=== PATIENT | male | born 1945 | race Caucasian/White ===

== ENCOUNTER → 2020-10-15 15:49 | Outpatient (CLI) | payer MEDICARE, SELFPAY ==
[2020-10-15 16:58] LABS: Add Manual Diff / Slide Review NO; Basophils Absolute Auto 100 /uL (0-100); Basophils Percent Auto 0.9 % (0-2); Eosinophils Absolute Auto 200 /uL (0-450); Eosinophils Percent Auto 2.5 % (2-4); Hematocrit 46.3 % (41-53); Hemoglobin 15.5 g/dL (13.5-17.5); Lymphocytes Absolute Auto 2200 /uL (1100-4500); Lymphocytes Percent Auto 32.2 % (25-40); Mean Corpuscular HGB Conc 33.5 % (30-36); Mean Corpuscular Hemoglobin 29.3 PG (26-34); Mean Corpuscular Volume 87.2 fL (80-100); Monocytes Absolute Auto 700 /uL (0-900); Monocytes Percent Auto 9.5 % (3-14); Neutrophils Absolute Auto 3800 /uL (1500-7000); Neutrophils Percent Auto 54.9 % (50-75); Platelet Count 165 X10^3/uL (150-400); Red Blood Cell Count 5.31 X10^6/uL (4.5-5.9); Red Cell Distribution Width 13.4 % (11.6-14.8)
[2020-10-15 17:19] LABS: Blood Urea Nitrogen 17 mg/dL (9-20); Carbon Dioxide 31 mmol/L (22-32); Chloride 102 mmol/L (98-107); Estimated Glomerular Filt Rate > 60.0 mL/min (>60); Glucose 92 mg/dL (80-110); HEMOLYSIS < 15 (0-50); Potassium 4.4 mmol/L (3.4-5.1); Sodium 139 mmol/L (137-145)
[2020-10-15 17:23] LABS: High Sensitivity CRP - Cardiac 0.6 mg/L (1.0-3.0)
[2020-10-15 17:33] LABS: Free T3, Triiodothyronine Free 4.32 pg/mL (2.77-5.27); Free T4, Direct Thyroxine 0.77 ng/dL (0.78-2.19)
[2020-10-15 17:47] LABS: Thyroid Stimulating Hormone 0.925 uIU/mL (0.47-4.68)
[2020-10-16 08:43] LABS: Adrenocorticotropic Hormone 21.2 pg/mL (7.2-63.3); Dehydroepiandrosterone Sulfate 47.8 ug/dL (30.9-295.6)
[2020-10-22 18:22] LABS: Percent Free Testosterone 1.88 % (1.50-4.20); Testosterone Total 319.3 ng/dL (264.0-916.0)
== END ==
PROVIDERS: Referring Provider Family Medicine; Visit Provider Family Medicine
DX: E78.5 Hyperlipidemia, unspecified (principal); E03.9 Hypothyroidism, unspecified; I48.0 Paroxysmal atrial fibrillation; E34.9 Endocrine disorder, unspecified; Z12.5 Encounter for screening for malignant neoplasm of prostate; D35.2 Benign neoplasm of pituitary gland
CPT/HCPCS: 36415; 80048; 82024; 82627; 84153; 84402; 84403; 84439; 84443; 84481; 85025; 86140; G0103

== ENCOUNTER → 2020-10-16 09:30 | Outpatient (CLI) | payer MEDICARE, SELFPAY ==
[2020-10-16 11:14] LABS: Cholesterol 151 mg/dL (140-199); HDL Cholesterol 53 mg/dL (40-60); LDL Cholesterol Calculated 68 mg/dL (<100); Triglycerides 148 mg/dL (35-150)
== END ==
PROVIDERS: Referring Provider Family Medicine; Visit Provider Family Medicine
DX: E78.5 Hyperlipidemia, unspecified (principal)
CPT/HCPCS: 36415; 80061

== ENCOUNTER → 2021-03-01 12:26 | Outpatient (CLI) | payer MEDICARE, SELFPAY ==
--- NOTE | 2021-03-01 | DI.RAD.S_ITS ---
PROCEDURE: XR CERVICAL SPINE 2V OR 3V INDICATIONS: Low Back Pain/Neck Pain/Shoulder Pain TECHNIQUE: 3 view(s) of the cervical spine were acquired. COMPARISON: None. FINDINGS: Bones: No fractures or dislocations to the T1 level. The lateral masses of C1 appear intact on the odontoid view. No suspicious bony lesions. Severe cervical spondylitic change. Multilevel prominent facet hypertrophy. Severe disc height loss and uncovertebral joint osteophytes at C5-C6, C6-C7, and C7-T1. Soft tissues: No prevertebral soft tissue swelling. IMPRESSION: Severe cervical spondylosis. No evidence acute bony abnormality of the cervical spine. If clinical suspicion and/or symptoms persist, further assessment with repeat plain films, or advanced imaging (e.g., CT, MRI, or bone scan) may be helpful for further assessment. Dictated by: Giancarlo Polo M.D. on 03/01/2021 at 17:14 Approved by: Giancarlo Polo M.D. on 03/01/2021 at 17:15
--- NOTE | 2021-03-01 | DI.RAD.S_ITS ---
PROCEDURE: XR LUMBAR SPINE 2-3V INDICATIONS: Low Back Pain/Neck Pain/Shoulder Pain TECHNIQUE: 3 views of the lumbar spine were acquired. COMPARISON: None. FINDINGS: Bones: 5 [id number] vertebrae are present. There is mild leftward curvature of the mid/lower lumbar spine. Multilevel disc space narrowing and endplate osteophyte formation. Facet hypertrophy throughout the mid and lower lumbar spine. No vertebral body compression fractures. No suspicious bony lesions. Soft tissues: Overlying bowel gas pattern is normal. No suspicious soft tissue calcifications. IMPRESSION: Multilevel degenerative disc and facet disease. No acute fracture. No osseous lesion. If symptoms and/or clinical suspicion for pathology persist, further assessment with repeat, or advanced imaging (e.g., CT, MRI, or bone scan) may be helpful for further assessment. Dictated by: Mode Washington M.D. on 03/01/2021 at 15:13 Approved by: Mode Washington M.D. on 03/01/2021 at 15:14
--- NOTE | 2021-03-01 | DI.RAD.S_ITS ---
PROCEDURE: XR SHOULDER RT MIN 2V INDICATIONS: Low Back Pain/Neck Pain/Shoulder Pain TECHNIQUE: 3 views of the shoulder were acquired. COMPARISON: None. FINDINGS: Bones: No fractures or dislocations. Moderate degenerative change at the AC joint. No suspicious bony lesions. Visualized ribs appear intact. Soft tissues: No suspicious soft tissue calcifications. IMPRESSION: Moderate degenerative change at the AC joint. Dictated by: Alexandro Torres M.D. on 03/01/2021 at 15:23 Approved by: Alexandro Torres M.D. on 03/01/2021 at 15:26
== END ==
PROVIDERS: PCP Internal Medicine; Referring Provider Chiropractor; Visit Provider Chiropractor
DX: M54.50 Low back pain, unspecified (principal); M54.2 Cervicalgia; M25.511 Pain in right shoulder; M51.37 Other intervertebral disc degeneration, lumbosacral region; M48.07 Spinal stenosis, lumbosacral region; M47.812 Spondylosis without myelopathy or radiculopathy, cervical region
CPT/HCPCS: 72040; 72100; 73030

== ENCOUNTER → 2021-04-28 13:49 | Outpatient (CLI) | payer MEDICARE, SELFPAY ==
[2021-04-28 16:27] LABS: Vitamin D 25 Hydroxy (D3) 75.2 ng/mL (30.0-100.0)
[2021-04-28 16:34] LABS: Estradiol, Total 11.4 pg/mL
[2021-04-29 10:19] LABS: PSA Free % 23.6 % (.); PSA, Total 5.6 ng/mL (0.0-4.0)
[2021-05-03 14:48] LABS: Percent Free Testosterone 1.74 % (1.50-4.20); Testosterone Free 7.61 ng/dL (5.00-21.00); Testosterone Total 437.2 ng/dL (264.0-916.0)
== END ==
PROVIDERS: PCP Internal Medicine; Referring Provider Naturopath; Visit Provider Naturopath
DX: Z79.899 Other long term (current) drug therapy (principal)
CPT/HCPCS: 36415; 82306; 82670; 84153; 84154; 84402; 84403

== ENCOUNTER → 2022-02-15 14:55 | Outpatient (CLI) | payer MEDICARE, SELFPAY ==
[2022-02-15 15:29] LABS: Estimated Glomerular Filt Rate > 60 mL/min (>60)
== END ==
PROVIDERS: PCP Internal Medicine; Referring Provider Radiology Diagnostic Radiology; Visit Provider Radiology Diagnostic Radiology
DX: M48.9 Spondylopathy, unspecified (principal)
CPT/HCPCS: 36415; 82565

== ENCOUNTER → 2022-02-16 11:58 | Outpatient (CLI) | payer MEDICARE, SELFPAY ==
--- NOTE | 2022-02-16 | DI.CT.S_ITS ---
PROCEDURE: CT THORACIC SPINE W CON INDICATIONS: spondylopathy TECHNIQUE: After the administration of intravenous Isovue contrast, 3 mm thick sections acquired through the levels of interest. Sagittal and coronal reformats were then constructed. For radiation dose reduction, the following was used: automated exposure control. COMPARISON: None. FINDINGS: Image quality: Excellent. Bones: Vertebral body height and alignment is maintained. Normal bone mineralization. Schmorl's nodes noted involving T1 and T3 superior endplates. Disc space narrowing anterior osteophytes noted at T7-8 and T8-9, T9-10. No lytic or blastic lesion. Soft tissues: No paraspinal mass. Incidental cholelithiasis without CT evidence of acute cholecystitis IMPRESSION: Degenerative disc disease without fracture or osseous lesion. Approved by: Lino Vasquez M.D. on 02/16/2022 at 16:47
== END ==
PROVIDERS: PCP Internal Medicine; Referring Provider Internal Medicine; Visit Provider Internal Medicine
DX: M51.34 Other intervertebral disc degeneration, thoracic region (principal); M48.9 Spondylopathy, unspecified
CPT/HCPCS: 72129

== ENCOUNTER 2022-03-27 13:32 | Day surgery (SDC) | payer MEDICARE, SELFPAY ==
[2022-03-27] MEDS: LACTATED RINGERS 1,000 ML 100 ML IV (13:45)
[2022-03-27 13:52] VITALS: BP 157/87; PULSE 76; RESP 16; TEMP 36.4; O2SAT 95; BMI 25.7
--- NOTE | 2022-03-27 14:36 | P.HP_ITS ---
History of Present Illness History of Present Illness Date Patient Seen: 03/27/22 Time Patient Seen: 14:36 Chief complaint: Colonoscopy Narrative: Personal history of colon polyps. Patient History Family & Social History Social History: household members spouse Tobacco & Substance use: Smoking Status Never smoker alcohol intake former Substance Use Type does not use,former substance user Meds Home Medications and Allergies Home Medications Medication Instructions Recorded Confirmed Type thyroid (pork) 120 mg tablet 120 mg PO DAILY 03/27/22 03/27/22 History ([place] Thyroid) Allergies Allergy/AdvReac Type Severity Reaction Status Date / Time Latex, Natural Rubber AdvReac Mild ITCHING Verified 03/27/22 13:48 Review of Systems Review of Systems ROS: Yes All systems reviewed with the patient and are negative except as otherwise documented Exam Vital Signs (past 8 hours): - 03/27/22 13:52 Temperature 97.5 F L Pulse Rate 76 Respiratory Rate 16 Blood Pressure 157/87 H Pulse Oximetry 95 Oxygen Delivery Method Room Air Oxygen Delivery Method Room Air Const General: cooperative HENMT Head: normal to inspection Eyes General: appearance normal, both eyes and all related structures Neck Neck: normal visual inspection Chest Chest: normal inspection of the chest Resp Effort & Inspection: normal respiratory effort Cardio Rate: regular rate GI Inspection: normal to inspection Skin General: no rashes or lesions noted Neuro General: patient alert and patient awake Extrem General: normal to inspection and no pedal edema Psych Appearance: grossly normal Assessment & Plan Assessment & Plan narrative: 76-year-old male with a personal history of colon polyps. Surveillance colonoscopy is pursued today. Time Spent With Patient Critical Care time: I spent a total of [] minutes of critical care time on this patient's care today; this time is exclusive of procedural time.
--- NOTE | 2022-03-27 14:38 | PM.PREOP ---
Pre-operative Note Interval Note History & Physical reviewed/Exam performed by Physician: Yes Changes to H&P: No ASA Class (for procedural sedation): II
--- NOTE | 2022-03-27 15:01 | PM.OP.COLON ---
Operative Date/Time/Diagnoses Date of procedure: 03/27/22 Time of procedure: 15:02 Pre-op diagnosis: Personal history of colon polyps Post-op diagnosis: same Procedure & Clinicians Study performed: Colonoscopy Same procedure as scheduled: Yes Indications: Personal history of colon polyps Surgeon: Saeid Blue Procedure Notes SCOAP/Timeout: Done Procedure in detail: After the risks and benefits were explained, written and verbal informed consent was obtained. The patient was brought into the procedure room and placed into the left lateral decubitus position. Please see anesthesia note for sedation details. Digital rectal examination was accomplished. The scope was introduced into the patient and advanced under direct visualization to the cecum as identified by the appendiceal orifice and ileocecal valve. The scope was slowly withdrawn to carefully examine the mucosa for any defects or lesions. Comprehensive imaging was accomplished throughout the rectum including the dentate line. The colon was decompressed, the scope was then removed from the patient who tolerated the procedure well. Bowel prep adequate Adult colonoscope Scope withdrawal time: 8 minutes Sedation minutes: 18 Specimen(s): none sent Complications: none Impression: The patient had rather extensive diverticulosis all through the sigmoid region. The sigmoid colon was mild to moderately tortuous. Grade 2 hemorrhoids were noted on direct views. Otherwise no significant pathology was appreciated throughout. Endoscopic diagnosis 1. Grade 2 hemorrhoids 2. Diverticulosis Post-procedure Plan for aftercare: 1. Follow up primary care as before. 2. Surveillance colonoscopy would typically be recommended for 10 years time (age 86) and therefore not deemed necessary. Disposition: PACU
[2022-03-27 15:02] VITALS: BP 110/66; PULSE 62; RESP 12; TEMP 37.1; O2SAT 96
[2022-03-27 15:07] VITALS: BP 115/71; PULSE 62; RESP 12; TEMP 36.7; O2SAT 97
[2022-03-27 15:12] VITALS: BP 135/81; PULSE 64; RESP 12; TEMP 36.8; O2SAT 96
[2022-03-27 15:17] VITALS: BP 143/90; PULSE 65; RESP 16; TEMP 36.4; O2SAT 99
[2022-03-27 15:34] VITALS: BP 141/83; PULSE 61; RESP 20; TEMP 36.4; O2SAT 97
== END 2022-03-27 15:40 | disposition home or self-care (01) ==
PROVIDERS: PCP Internal Medicine; Referring Provider Internal Medicine Gastroenterology; Visit Provider Internal Medicine Gastroenterology
PROC: 0DJD8ZZ Inspection of Lower Intestinal Tract, Via Natural or Artificial Opening Endoscopic (ICD-10-PCS; CPT 45378; principal; 2022-03-27 14:15)
DX: Z12.11 Encounter for screening for malignant neoplasm of colon (principal); Z86.010 Personal history of colon polyps; K57.30 Diverticulosis of large intestine without perforation or abscess without bleeding; K64.1 Second degree hemorrhoids
CPT/HCPCS: G0105; J2704; J3010

== ENCOUNTER → 2022-06-27 12:46 | Outpatient (CLI) | payer MEDICARE, SELFPAY ==
--- NOTE | 2022-06-27 12:48 | DI.RAD.S_ITS ---
PROCEDURE: XR CERVICAL SPINE 4V OR 5V INDICATIONS: Chronic neck pain TECHNIQUE: 5 views of the cervical spine acquired. COMPARISON: [facility], , XR CERVICAL SPINE 2V OR 3V, 03/01/2021, 12:34. FINDINGS: Bones: No fractures or dislocations to the T1 level. Oblique images demonstrate bilateral C3-C4, C4-C5, C5-C6 and C6-C7 bony foraminal stenoses. Severe C 5-C6, C6-C7 and C7-T1 degenerative disc disease. Moderate C3-C4 degenerative disc disease. Mild C4-C5 degenerative disc disease. Mild facet hypertrophy throughout the cervical spine. Soft tissues: No prevertebral soft tissue swelling. IMPRESSION: 1. Multilevel degenerative disc disease. 2. Multilevel facet arthropathy. 3. No fracture. No acute osseous lesion. If symptoms and/or clinical suspicion for pathology persists, evaluation with MRI should be considered for further assessment. Dictated by: Fidelina Garza MD, PhD on 06/27/2022 at 14:34 Approved by: Fidelina Garza MD, PhD on 06/27/2022 at 14:36
== END ==
PROVIDERS: Referring Provider Anesthesiology; Visit Provider Anesthesiology
DX: M47.812 Spondylosis without myelopathy or radiculopathy, cervical region (principal); M50.31 Other cervical disc degeneration, high cervical region
CPT/HCPCS: 72050; 99213

== ENCOUNTER → 2022-09-14 11:19 | Outpatient (CLI) | payer MEDICARE, SELFPAY ==
[2022-09-18 19:34] LABS: ANA Screen, IFA Negative (.)
== END ==
PROVIDERS: Referring Provider Dermatology; Visit Provider Dermatology
DX: L30.0 Nummular dermatitis (principal)
CPT/HCPCS: 36415; 86038

== ENCOUNTER → 2022-10-23 14:21 | Outpatient (CLI) | payer MEDICARE, SELFPAY ==
[2022-10-23 15:20] LABS: Add Manual Diff / Slide Review NO; Basophils Absolute Auto 0 /uL (0-100); Basophils Percent Auto 0.5 % (0-2); Eosinophils Absolute Auto 100 /uL (0-450); Eosinophils Percent Auto 1.7 % (2-4); Hematocrit 44.8 % (41-53); Hemoglobin 15.3 g/dL (13.5-17.5); Lymphocytes Absolute Auto 1800 /uL (1100-4500); Lymphocytes Percent Auto 24.3 % (25-40); Mean Corpuscular HGB Conc 34.1 % (30-36); Mean Corpuscular Hemoglobin 29.1 PG (26-34); Mean Corpuscular Volume 85.5 fL (80-100); Monocytes Absolute Auto 700 /uL (0-900); Neutrophils Absolute Auto 4700 /uL (1500-7000); Neutrophils Percent Auto 64.5 % (50-75); Platelet Count 160 X10^3/uL (150-400); Red Blood Cell Count 5.24 X10^6/uL (4.5-5.9); Red Cell Distribution Width 13.8 % (11.6-14.8); White Blood Cell Count 7.3 X10^3/uL (4.5-11.0)
[2022-10-23 15:35] LABS: Alanine Aminotransferase 28 IU/L (<50); Albumin 4.4 g/dL (3.5-5.0); Albumin Globulin Ratio 1.7 (1.0-2.8); Alkaline Phosphatase 91 U/L (38-126); Aspartate Aminotransferase 32 IU/L (17-59); BUN Creatinine Ratio 15.6 (6-22); Bilirubin Total 0.6 mg/dL (0.2-1.3); Blood Urea Nitrogen 14 mg/dL (9-20); C-Reactive Protein Quant < 0.5 mg/dL (<1.0); Calcium 9.1 mg/dL (8.4-10.2); Carbon Dioxide 29 mmol/L (22-32); Chloride 103 mmol/L (98-107); Estimated Glomerular Filt Rate > 60 mL/min (>60); Globulin 2.6 g/dL (1.7-4.1); Glucose 96 mg/dL (80-110); HEMOLYSIS < 15 (0-50); Potassium 4.6 mmol/L (3.4-5.1); Sodium 139 mmol/L (137-145)
[2022-10-23 15:48] LABS: Free T3, Triiodothyronine Free 6.15 pg/mL (2.77-5.27); Free T4, Direct Thyroxine 0.95 ng/dL (0.78-2.19)
[2022-10-23 16:01] LABS: Thyroid Stimulating Hormone 1.14 uIU/mL (0.47-4.68)
[2022-10-23 16:02] LABS: Prostate Specific Antigen Scrn 6.06 ng/mL (0.1-4.0)
[2022-10-23 16:10] LABS: Estradiol, Total 28.8 pg/mL
[2022-11-01 01:26] LABS: Percent Free Testosterone 1.99 % (1.50-4.20); Testosterone Free 7.08 ng/dL (5.00-21.00); Testosterone Total 355.7 ng/dL (264.0-916.0)
== END ==
PROVIDERS: PCP Family Medicine; Referring Provider Family Medicine; Visit Provider Family Medicine
DX: Z12.5 Encounter for screening for malignant neoplasm of prostate; E03.9 Hypothyroidism, unspecified
CPT/HCPCS: 36415; 80053; 82670; 84402; 84403; 84439; 84443; 84481; 85025; 86140; G0103

== ENCOUNTER → 2022-11-16 15:00 | Outpatient (CLI) | payer MEDICARE, SELFPAY ==
--- NOTE | 2022-11-16 15:02 | DI.US.S_ITS ---
PROCEDURE: US ABD AORTA ANEURYSM SCREEN INDICATIONS: screening TECHNIQUE: Real time scanning was performed of the aorta and iliac arteries, with image documentation. COMPARISON: None. FINDINGS: Aorta: Proximal aortic diameter measures 2.9 cm. Mid-aorta measures 1.9 cm. Distal aortic diameter is 1.8 cm. Iliac arteries: Right common iliac artery measures 1.3 cm. Left common iliac artery measures 1.3 cm. IMPRESSION: Ectasia of the proximal aorta and 5 year follow-up ultrasound recommended. Dictated by: Abram GILLIAM Interpreted: Neftaly Jalloh MD on 11/16/2022 at 15:56 Transcribed by: THALIA on 11/16/2022 at 15:57 Approved by: Neftaly Jalloh M.D. on 12/18/2022 at 7:53
== END ==
PROVIDERS: PCP Family Medicine; Referring Provider Family Medicine; Visit Provider Family Medicine
DX: Z13.6 Encounter for screening for cardiovascular disorders (principal); I77.819 Aortic ectasia, unspecified site
CPT/HCPCS: 76706

== ENCOUNTER → 2023-03-14 13:50 | Outpatient (CLI) | payer MEDICARE, SELFPAY ==
[2023-03-14 15:06] LABS: Free T3, Triiodothyronine Free 3.87 pg/mL (2.77-5.27); Free T4, Direct Thyroxine 0.77 ng/dL (0.78-2.19)
[2023-03-14 15:20] LABS: Thyroid Stimulating Hormone 0.489 uIU/mL (0.47-4.68)
== END ==
LOC: LAB 13:51
PROVIDERS: PCP Family Medicine; Referring Provider Family Medicine; Visit Provider Family Medicine
DX: E03.9 Hypothyroidism, unspecified (principal)
CPT/HCPCS: 84439; 84443; 84481

== ENCOUNTER → 2023-07-04 14:07 | Outpatient (CLI) | payer MEDICARE, SELFPAY ==
--- NOTE | 2023-07-04 14:09 | DI.RAD.S_ITS ---
PROCEDURE: XR ANKLE LT MIN 3V INDICATIONS: Left ankle injury TECHNIQUE: 3 views of the ankle were acquired. COMPARISON: None. FINDINGS: Bones: No fractures or dislocations. Osteoarthritic changes are noted in midfoot and hindfoot joints most notably in tibiotalar joint. Likely old injury involving tip of lateral malleolus with well corticated fragments. Ankle mortise is normally aligned. No suspicious bony lesions. Soft tissues: No tibiotalar joint effusion. Achilles tendon appears normal. IMPRESSION: No acute ankle fracture or dislocation. Old injury involving tip of lateral malleolus. [id number] midfoot and hindfoot joint osteoarthritis. Dictated by: Solo Hughes M.D. on 07/04/2023 at 14:48 Approved by: Solo Hughes M.D. on 07/04/2023 at 14:49
--- NOTE | 2023-07-04 14:09 | DI.RAD.S_ITS ---
PROCEDURE: XR ANKLE RT MIN 3V INDICATIONS: Right ankle injury TECHNIQUE: 3 views of the ankle were acquired. COMPARISON: [facility], CR, XR ANKLE LT MIN 3V, 07/04/2023, 13:20. FINDINGS: Bones: Acute to subacute appearing transverse fracture through tip of lateral malleolus is seen. No significant displacement. No other fracture or dislocation. Ankle mortise is normally aligned. No suspicious bony lesions. Soft tissues: Mild lateral ankle soft tissue swelling is seen. No tibiotalar joint effusion. Achilles tendon appears normal. IMPRESSION: Suggestion of acute to subacute nondisplaced transverse fracture through tip of lateral malleolus. Mild lateral ankle soft tissue swelling. Dictated by: Solo Hughes M.D. on 07/04/2023 at 14:53 Approved by: Solo Hughes M.D. on 07/04/2023 at 14:55
== END ==
LOC: RAD 14:09
PROVIDERS: PCP Nurse Practitioner Family; Referring Provider Physician Assistant Surgical; Visit Provider Physician Assistant Surgical
DX: S99.912A Unspecified injury of left ankle, initial encounter (principal); S99.911A Unspecified injury of right ankle, initial encounter; M19.072 Primary osteoarthritis, left ankle and foot; M79.89 Other specified soft tissue disorders; X58.XXXA Exposure to other specified factors, initial encounter
CPT/HCPCS: 73610

== ENCOUNTER → 2023-09-06 13:37 | Outpatient (CLI) | payer MEDICARE, SELFPAY ==
--- NOTE | 2023-09-06 13:41 | DI.RAD.S_ITS ---
PROCEDURE: XR ANKLE RT MIN 3V INDICATIONS: avulsion fracture of distal end of fibula TECHNIQUE: 3 views of the ankle were acquired. COMPARISON: July 04, 2023. FINDINGS: Bones: Bone alignment is normal. Posttraumatic change is again noted along the tip of the distal fibula. Fracture line remains, visualized with margins that are showing ossification, a normal consequence of tip fractures of the fibula. No complications are demonstrated. Ankle mortise is maintained. Soft tissues: No tibiotalar joint effusion. Achilles tendon appears normal. IMPRESSION: Healing fracture of the tip of the fibula. Dictated by: Rd Garcia M.D. on 09/06/2023 at 14:09 Approved by: Rd Garcia M.D. on 09/06/2023 at 14:17
== END ==
PROVIDERS: PCP Nurse Practitioner Family; Referring Provider Podiatrist; Visit Provider Podiatrist
DX: S82.831D Other fracture of upper and lower end of right fibula, subsequent encounter for closed fracture with routine healing (principal); X58.XXXD Exposure to other specified factors, subsequent encounter
CPT/HCPCS: 73610

== ENCOUNTER 2024-08-14 10:03 | Emergency (ER) | payer MEDICARE, SELFPAY ==
[2024-08-14 11:17] VITALS: BP 132/67; PULSE 52; RESP 16; TEMP 36.4; O2SAT 99; BMI 26.5
--- NOTE | 2024-08-14 11:21 | DI.RAD.S_ITS ---
PROCEDURE: XR KNEE RT 3V INDICATIONS: swelling TECHNIQUE: 3 views of the knee were acquired. COMPARISON: [facility], CR, XR ANKLE RT MIN 3V, 09/06/2023, 13:46. FINDINGS: Bones: No fractures or dislocations. No suspicious bony lesions. Tricompartmental arthritic change with chondrocalcinosis. Soft tissues: Mild joint effusion. No suspicious soft tissue calcifications. IMPRESSION: No visualized acute fracture or dislocation. However, if clinical concern and/or pain persist, short interval imaging followup in 7-10 days is recommended, as occult injury cannot be definitively excluded. Dictated by: Marisa Ram M.D. on 08/14/2024 at 12:02 Approved by: Marisa Ram M.D. on 08/14/2024 at 12:03
--- NOTE | 2024-08-14 12:07 | ED_ITS ---
HPI - Extremity Injury (Lower) <Savita Martinez PA-C - Last Filed: 08/14/24 14:30> General Chief Complaint: Extremity Injury, Lower Stated Complaint: Right knee pain x 2 days Time Seen by Provider: 08/14/24 11:21 Source: patient Mode of arrival: Ambulatory History of Present Illness HPI Narrative: Mr. Del Cid is a pleasant 78-year-old male with a past medical history of lumbar adenoma, heat intolerance, lumbar DDD who presents to the emergency department for right knee pain x2 days and acute on chronic left foot pain. Patient states he always uses a vibration plate and earlier this week he was using out as usual however he noticed that he started having right knee pressure and discomfort for the last 2 days and is concerned it might have been from the vibration plate. Denies pain of the knee but states it is very uncomfortable with pressure. Has had surgery on the knee in the past to repair meniscus. Denies any redness, increased warmth, fevers, chills, calf swelling or tenderness. Also has been experiencing acute on chronic pain of his medial left foot and there was a bony lump in this area. There are no skin changes of the left foot. No direct trauma to either area. He has not on any blood thinners. He has broken both ankles in the past. Related Data Previous Rx's ?Medication ?Instructions ?Recorded Disabled parking permit #1 ea 10/23/22 Allergies Allergy/AdvReac Type Severity Reaction Status Date / Time Latex, Natural Rubber AdvReac Mild ITCHING Verified 07/04/23 13:27 cats AdvReac Unknown Uncoded 07/04/23 13:27 Review of Systems <Savita Martinez PA-C - Last Filed: 08/14/24 14:30> Review of Systems ROS Unobtainable: All systems reviewed & are unremarkable except as noted in HPI and below Patient History <Savita Martinez PA-C - Last Filed: 08/14/24 14:30> Medical History Heat intolerance Hypogonadism Eczema (~2008) Spinal arthritis (~1989) Cervical stenosis of spine (~1999) Lumbar disc disease (~1999) Hammer toe of left foot (~2017) Mumps (~1952) Herpes (~1983) Chicken pox (~1951) Tinnitus (~2014) History of elevated PSA (~2009) Hemorrhoid (~2007) Pituitary adenoma (~2004) Low testosterone (~2008) Hypothyroidism (~2008) Cervical spondylarthritis (~1989) Low back pain (~1989) Neck pain Surgical History Anesthesia History of shoulder surgery (~2021) History of toe surgery (~2017) Family History Father Cancer Mother Cancer History of emphysema Social History household members: spouse Smoking Status: Never smoker alcohol intake: former Smoking Status: Never smoker Exam <Savita Martinez PA-C - Last Filed: 08/14/24 14:30> Narrative Exam Narrative: GENERAL: 78 year old patient appears stated age. Well-developed patient, in no acute distress. HEAD: Atraumatic. Normocephalic. NECK: Trachea midline. Cervical ROM intact. CARDIOVASCULAR: Regular rate RESPIRATORY: ?Nonlabored respirations. ?Speaking in clear, full sentences. EXTREMITIES: Small palpable effusion of right knee. No reproducible joint laxity. No focal bony tenderness. No redness, edema or increased warmth. Bilateral calves are soft and nontender. Strong DP and PT pulses bilaterally. On the medial arch of the left foot there is a bony lump just distal to the medial malleolus that is tender. No skin changes. NEURO: AOx3. ?Clear speech. ?Moves all 4 extremities appropriately. SKIN: No rash or erythema of visible areas Initial Vital Signs Initial Vital Signs: Vital Signs Temperature 97.6 F 08/14/24 11:17 Pulse Rate 52 L 08/14/24 11:17 Respiratory Rate 16 08/14/24 11:17 Blood Pressure 132/67 08/14/24 11:17 Pulse Oximetry 99 08/14/24 11:17 Oxygen Delivery Method Room Air 08/14/24 11:17 <Ramses Davies MD - Last Filed: 08/17/24 18:39> Initial Vital Signs Initial Vital Signs: Vital Signs Temperature 97.6 F 08/14/24 11:17 Pulse Rate 52 L 08/14/24 11:17 Respiratory Rate 16 08/14/24 11:17 Blood Pressure 132/67 08/14/24 11:17 Pulse Oximetry 99 08/14/24 11:17 Oxygen Delivery Method Room Air 08/14/24 11:17 Course <Savita Martinez PA-C - Last Filed: 08/14/24 14:30> Orders Ordered: ED Orders 08/14/24 11:21 XR knee RT 3V Stat 08/14/24 12:21 XR foot LT min 3V Stat Vital Signs Vital signs: Vital Signs - 8 hr 08/14/24 11:17 08/14/24 13:47 Temperature 97.6 F Pulse Rate 52 L 57 L Respiratory Rate 16 16 Blood Pressure 132/67 127/65 Pulse Oximetry 99 98 Oxygen Delivery Method Room Air <Ramses Davies MD - Last Filed: 08/17/24 18:39> Orders Ordered: ED Orders 08/14/24 11:21 XR knee RT 3V Stat 08/14/24 12:21 XR foot LT min 3V Stat Vital Signs Vital signs: Vital Signs - 8 hr 08/14/24 11:17 08/14/24 13:47 Temperature 97.6 F Pulse Rate 52 L 57 L Respiratory Rate 16 16 Blood Pressure 132/67 127/65 Pulse Oximetry 99 98 Oxygen Delivery Method Room Air MDM - Extremity Injury (Lower) <Savita Martinez PA-C - Last Filed: 08/14/24 14:30> Medical Records Attestation: I reviewed the patient's medical records. Imaging Data Right Knee XR: Radiologist's Impression: PROCEDURE: XR KNEE RT 3V INDICATIONS: swelling TECHNIQUE: 3 views of the knee were acquired. COMPARISON: [facility], , XR ANKLE RT MIN 3V, 09/06/2023, 13:46. FINDINGS: Bones: No fractures or dislocations. No suspicious bony lesions. Tricompartmental arthritic change with chondrocalcinosis. Soft tissues: Mild joint effusion. No suspicious soft tissue calcifications. IMPRESSION: No visualized acute fracture or dislocation. However, if clinical concern and/or pain persist, short interval imaging followup in 7-10 days is recommended, as occult injury cannot be definitively excluded. Dictated by: Marisa Ram M.D. on 08/14/2024 at 12:02 Approved by: Marisa Ram M.D. on 08/14/2024 at 12:03 Left Foot X-Ray: Radiologist's Impression: PROCEDURE: XR FOOT LT MIN 3V INDICATIONS: acute on chronic pain medial L foot; bump TECHNIQUE: 3 views of the foot were acquired. COMPARISON: [facility], CR, XR ANKLE LT MIN 3V, 07/04/2023, 13:20. FINDINGS: Bones: No fractures or dislocations. No suspicious bony lesions. Surgical densities overlying the distal 2nd metatarsal. Scattered IP degenerative narrowing. Calcaneal talar osteophyte. Soft tissues: No tibiotalar joint effusion. Achilles tendon appears normal. IMPRESSION: No acute bony abnormality. Degenerative changes are present. No visualized abnormal soft tissue mass. If concern persists, MRI may be obtained. Dictated by: Marisa Ram M.D. on 08/14/2024 at 13:07 Approved by: Marisa Ram M.D. on 08/14/2024 at 13:08 MDM Narrative Medical decision making narrative: 78-year-old male with a past medical history of lumbar adenoma, heat intolerance, lumbar DDD who presents to the emergency department for right knee pain x2 days and acute on chronic left foot pain. Differential diagnosis includes but is not limited to right knee strain, sprain, fracture, dislocation, left foot arthritis, knee arthritis, knee effusion, etc. On exam patient is in no acute distress, nontoxic appearing, vital signs within normal limits. Right knee x-ray obtained in triage. Physical exam reveals right knee with small effusion, no erythema, edema or bony tenderness. Left foot exam reveals small bony lump on medial foot arch that is tender. There are no skin changes of the lower legs and they are neurovascularly intact with strong pulses. We will add on left foot x-ray and treat right knee with [place] wrap. Right knee x-ray reveals tricompartmental arthritic change with chondrocalcinosis, mild joint effusion, no visualized acute fracture or dislocation. Right knee [place] wrap applied. Left foot x-ray reveals degenerative changes present, calcaneal talar osteophyte present. Discussed supportive care, rice therapy, follow up with Podiatry for left foot arthritis. Patient verbalized understanding of all information and is agreeable to the plan. He is stable for discharge home. Discharge Plan Departure Patient Disposition: Home Clinical Impression: Effusion of knee joint right, Tricompartment osteoarthritis of right knee, Arthritis of foot, left Instructions: DI for Knee Pain Activity Restrictions/Additional Instructions: Dear mr. Del Cid, Thank you for coming to the emergency department. Today you were evaluated for right knee pressure and left foot pain. X-ray of your left foot revealed degenerative changes and a calcaneal talar osteophyte. X-ray of your right knee revealed a mild joint effusion and tricompartmental arthritic changes. Please use RICE therapy for your pain in addition to ibuprofen/acetaminophen. Rest the painful area. Ice the area of pain/swelling for at least 15 minutes, 4x a day. Compress the area of swelling using a brace, wrap, or splint if applied. Elevate the painful or swollen extremity by supporting it above the level of the heart with pillows when sitting or laying. Please take Ibuprofen (Motrin/Advil) or Acetaminophen (Tylenol) for pain. These are available over the counter. You may take Ibuprofen 600 mg every 8 hours with food for pain. You may also take Acetaminophen 650 mg every 4-6 hours for pain. Do not exceed 3000 mg of Tylenol a day as this can cause liver damage. Do not drink alcohol with either of these medications. Please follow up with the primary care doctor in call to schedule an appointment with a public health nurse for further management. Please follow up with your primary care doctor within the next 2-3 days for ER follow-up. (If you do not have a PCP you can call [phone]. ?to schedule an appointment with an [facility] Primary Care Provider) IF YOU DEVELOP ANY NEW OR WORSENING SYMPTOMS, RETURN TO THE ER! Please read the attached instructions, they highlight more specific treatments and interventions for you at home. Thank you for letting me participate in your care, Savita Martinez PA-C Prescriptions: No Action (DME) Disabled parking permit See Rx Instructions .ROUTE .MEDSUPPLY Qty: 1 0RF Rx Instructions: I find this patient to be medically disabled and qualified for disabled parking as indicated, and signed, on the accompanying disabled parking application for individuals. Referrals: Frances James DPM [Physician, Podiatry] Referral Note: Left foot arthritis and pain Donal Montes ARNP [Primary Care Provider, Medical] Stand Alone Forms: Patient Portal/API ED Sign-out <Ramses Davies MD - Last Filed: 08/17/24 18:39> Cosign ED Attending Cosignature Attestation: I was immediately available in the department for consultation. ?This documentation has been reviewed and I agree with assessment and plan. Supervised by Ramses Davies MD
--- NOTE | 2024-08-14 12:21 | DI.RAD.S_ITS ---
PROCEDURE: XR FOOT LT MIN 3V INDICATIONS: acute on chronic pain medial L foot; bump TECHNIQUE: 3 views of the foot were acquired. COMPARISON: [facility], CR, XR ANKLE LT MIN 3V, 07/04/2023, 13:20. FINDINGS: Bones: No fractures or dislocations. No suspicious bony lesions. Surgical densities overlying the distal 2nd metatarsal. Scattered IP degenerative narrowing. Calcaneal talar osteophyte. Soft tissues: No tibiotalar joint effusion. Achilles tendon appears normal. IMPRESSION: No acute bony abnormality. Degenerative changes are present. No visualized abnormal soft tissue mass. If concern persists, MRI may be obtained. Dictated by: Marisa Ram M.D. on 08/14/2024 at 13:07 Approved by: Marisa Ram M.D. on 08/14/2024 at 13:08
--- NOTE | 2024-08-14 13:45 | PC.NURSE ---
Pt reports left foot pain and right knee swelling. Pt states this has been going on for a couple of days. dirk wrap applied in ER; pt reports improvment in pain.
[2024-08-14 13:47] VITALS: BP 127/65; PULSE 57; RESP 16; O2SAT 98
== END 2024-08-14 13:47 | disposition home or self-care (01) ==
PROVIDERS: Emergency Provider Physician Assistant; PCP Nurse Practitioner Family
DX: M25.461 Effusion, right knee (principal); M19.072 Primary osteoarthritis, left ankle and foot; M17.11 Unilateral primary osteoarthritis, right knee
CPT/HCPCS: 73562; 73630; 99282; 99283

== ENCOUNTER 2024-10-20 15:21 | Emergency (ER) | payer MEDICARE, SELFPAY ==
[2024-10-20 15:38] VITALS: BP 160/72; PULSE 68; RESP 20; TEMP 36.6; O2SAT 96; BMI 26.5
--- NOTE | 2024-10-20 15:51 | ED.SKABFB ---
HPI - Skin/Abscess/Foreign Bdy <Pretty Blandon PA-C - Last Filed: 10/20/24 17:00> General Chief complaint: Skin/Abscess/Foreign Body Stated complaint: lump on left arm, itches Time Seen by Provider: 10/20/24 15:51 Source: patient Mode of arrival: Ambulatory History of Present Illness HPI narrative: Chart review performed including the triage note in anticipation of seeing this patient formally, I went to look for this gentleman in the waiting room and he left without being seen. No patient contact. Related Data Previous Rx's ?Medication ?Instructions ?Recorded Disabled parking permit #1 ea 10/23/22 Allergies Allergy/AdvReac Type Severity Reaction Status Date / Time Latex, Natural Rubber AdvReac Mild ITCHING Verified 07/04/23 13:27 cats AdvReac Unknown Uncoded 07/04/23 13:27 Patient History <Pretty Blandon PA-C - Last Filed: 10/20/24 17:00> Medical History Heat intolerance Hypogonadism Eczema (~2008) Spinal arthritis (~1989) Cervical stenosis of spine (~1999) Lumbar disc disease (~1999) Hammer toe of left foot (~2017) Mumps (~1952) Herpes (~1983) Chicken pox (~1951) Tinnitus (~2014) History of elevated PSA (~2009) Hemorrhoid (~2007) Pituitary adenoma (~2004) Low testosterone (~2008) Hypothyroidism (~2008) Cervical spondylarthritis (~1989) Low back pain (~1989) Neck pain Surgical History Anesthesia History of shoulder surgery (~2021) History of toe surgery (~2017) Family History Father Cancer Mother Cancer History of emphysema Social History household members: spouse Smoking Status: Former smoker alcohol intake: former Smoking Status: Former smoker Exam <Pretty Blandon PA-C - Last Filed: 10/20/24 17:00> Initial Vital Signs Initial Vital Signs: Vital Signs Temperature 98 F 10/20/24 15:38 Pulse Rate 68 10/20/24 15:38 Respiratory Rate 20 10/20/24 15:38 Blood Pressure 160/72 H 10/20/24 15:38 Pulse Oximetry 96 10/20/24 15:38 Oxygen Delivery Method Room Air 10/20/24 15:38 <Lisa Kingston MD - Last Filed: 10/21/24 23:48> Initial Vital Signs Initial Vital Signs: Vital Signs Temperature 98 F 10/20/24 15:38 Pulse Rate 68 10/20/24 15:38 Respiratory Rate 20 10/20/24 15:38 Blood Pressure 160/72 H 10/20/24 15:38 Pulse Oximetry 96 10/20/24 15:38 Oxygen Delivery Method Room Air 10/20/24 15:38 Course <Pretty Blandon PA-C - Last Filed: 10/20/24 17:00> Vital Signs Vital signs: Vital Signs - 8 hr 10/20/24 15:38 Temperature 98 F Pulse Rate 68 Respiratory Rate 20 Blood Pressure 160/72 H Pulse Oximetry 96 Oxygen Delivery Method Room Air <Lisa Kingston MD - Last Filed: 10/21/24 23:48> Vital Signs Vital signs: Vital Signs - 8 hr 10/20/24 15:38 Temperature 98 F Pulse Rate 68 Respiratory Rate 20 Blood Pressure 160/72 H Pulse Oximetry 96 Oxygen Delivery Method Room Air Discharge Plan Departure Patient Disposition: Left Without Being Seen Clinical Impression: Patient left without being seen Prescriptions: No Action (DME) Disabled parking permit See Rx Instructions .ROUTE .MEDSULY Qty: 1 0RF Rx Instructions: I find this patient to be medically disabled and qualified for disabled parking as indicated, and signed, on the accompanying disabled parking application for individuals. ED Sign-out <Lisa Kingston MD - Last Filed: 10/21/24 23:48> Cosign ED Attending Cosignature Attestation: I was immediately available in the department for consultation throughout this patient's visit. Lisa Kingston MD
== END 2024-10-20 19:01 | disposition left against medical advice (07) ==
PROVIDERS: Emergency Provider Physician Assistant Medical; PCP Nurse Practitioner Family
DX: Z53.21 Procedure and treatment not carried out due to patient leaving prior to being seen by health care provider (principal)
CPT/HCPCS: 99281

== ENCOUNTER → 2024-10-30 13:26 | Outpatient (CLI) | payer MEDICARE, SELFPAY ==
--- NOTE | 2024-10-30 13:30 | DI.US.S_ITS ---
PROCEDURE: US EXTREMITY NONVASC UPPER LT INDICATIONS: Lump in left antecubital TECHNIQUE: Real-time scanning was performed of the left upper extremity, with image documentation. COMPARISON: None. FINDINGS and IMPRESSION: No significant sonographic abnormality is seen at the patient indicated area of concern in the region of the left antecubital fossa. Adjacent cephalic vein is patent. If symptoms persist, consider cross-sectional imaging such as MRI for further evaluation. Approved by: Brock Suarez M.D. on 10/30/2024 at 15:24
== END ==
LOC: US 13:29
PROVIDERS: PCP Nurse Practitioner Family; Referring Provider Nurse Practitioner Family; Visit Provider Nurse Practitioner Family
DX: R22.32 Localized swelling, mass and lump, left upper limb (principal)
CPT/HCPCS: 76882

== ENCOUNTER → 2025-01-14 10:40 | Outpatient (CLI) | payer MEDICARE, OTHER, SELFPAY ==
--- NOTE | 2025-01-14 10:43 | DI.MRI.S_ITS ---
PROCEDURE: MR ELBOW LT WO/W CON INDICATIONS: left elbow mass TECHNIQUE: Noncontrast coronal proton density fast spin echo and T2 fast spin echo with fat saturation, coronal T1 spin echo with fat saturation, axial and sagittal T1 spin echo and T2 fast spin echo with fat saturation through the elbow. Post-contrast coronal, axial, and sagittal T1 spin echo with fat saturation through the elbow. COMPARISON: None. FINDINGS: Image quality: Diagnostic Bones and cartilage: No fracture. No suspicious marrow replacing process. No high-grade, full-thickness articular cartilage defect. No osteochondral defect. No joint effusion. No enhancing osseous lesion. Ligaments: The ulnar collateral ligament is intact. Thickening of the posterior band of the radial collateral ligament without acute tear, likely scarring/sequela of remote injury. The lateral ulnar collateral ligament and annular ligament are intact. Muscles and Tendons: Mild tendinosis of the common flexor tendon origin. The common extensor tendon origin is intact. Intact biceps brachii and brachialis. Intact muscular insertion of the medial head of the triceps. Intact tendinous insertoin of the long and lateral heads of the triceps. No enhancing intramuscular lesion. Neurovascular: The median and radial neurovascular bundles appear normal; no focal muscle atrophy to suggest nerve impingement. The ulnar nerve is unremarkable. Filling defect in the proximal accessory cephalic vein, a total length of 2 cm (series 16, image 13). This is deep to the palpable marker. No significant adjacent edema to suggest superficial thrombophlebitis. Other: No bicipitoradial bursitis. No olecranon bursitis. IMPRESSION: Superficial venous thrombosis of the proximal accessory cephalic vein, a total length of 2 cm, deep to the palpable marker in the proximal radial forearm. No significant adjacent edema to suggest imaging findings of superficial thrombophlebitis. Mild tendinosis of the common flexor tendon origin. Dictated by: Derek Chacon M.D. on 01/14/2025 at 12:08 Approved by: Derek Chacon M.D. on 01/14/2025 at 12:27
== END ==
PROVIDERS: PCP Nurse Practitioner Family; Referring Provider Nurse Practitioner Family; Visit Provider Nutritionist
DX: I82.612 Acute embolism and thrombosis of superficial veins of left upper extremity (principal); M25.522 Pain in left elbow; M67.922 Unspecified disorder of synovium and tendon, left upper arm
CPT/HCPCS: 73223; A9579